=== PATIENT | female | born 1995 | race Caucasian/White ===

== ENCOUNTER 2022-01-17 09:28 | Outpatient (CLI) | payer OTHER, SELFPAY ==
[2022-01-17 14:52] LABS: HCG Quant, Pregnancy 152 mIU/mL (1-3)
== END 2022-01-17 09:29 | disposition home or self-care (01) ==
LOC: LBO 09:29
PROVIDERS: Visit Provider Obstetrics & Gynecology
DX: O03.9 Complete or unspecified spontaneous abortion without complication (principal)
CPT/HCPCS: 36415; 84702

== ENCOUNTER 2022-01-24 03:09 | Outpatient (CLI) | payer OTHER, SELFPAY ==
[2022-01-24 16:44] LABS: HCG Quant, Pregnancy 25 mIU/mL (1-3)
== END 2022-01-24 03:10 | disposition home or self-care (01) ==
LOC: LBO 03:09
PROVIDERS: Visit Provider Obstetrics & Gynecology
DX: O03.9 Complete or unspecified spontaneous abortion without complication (principal)
CPT/HCPCS: 36415; 84702

== ENCOUNTER 2022-03-01 17:43 | Outpatient (REF) | payer OTHER, SELFPAY | END 2022-03-01 17:44 | disposition home or self-care (01) | LOC: LBN 17:43 | PROVIDERS: Visit Provider Obstetrics & Gynecology ==

== ENCOUNTER 2022-03-01 18:24 | Outpatient (REF) | payer OTHER, SELFPAY | END 2022-03-01 18:25 | disposition home or self-care (01) | LOC: LBN 18:24 | PROVIDERS: Visit Provider Obstetrics & Gynecology | DX: N89.8 Other specified noninflammatory disorders of vagina (principal) | CPT/HCPCS: 87480; 87510; 87660 ==

== ENCOUNTER 2022-03-03 02:08 | Outpatient (CLI) | payer OTHER, SELFPAY ==
[2022-03-03 16:31] LABS: HCG Quant, Pregnancy < 1 mIU/mL (1-3)
== END 2022-03-03 02:09 | disposition home or self-care (01) ==
LOC: LBO 02:08
PROVIDERS: Visit Provider Obstetrics & Gynecology
DX: O03.9 Complete or unspecified spontaneous abortion without complication (principal)
CPT/HCPCS: 36415; 84702

== ENCOUNTER 2023-01-10 16:53 | Outpatient (REF) | payer OTHER, SELFPAY ==
--- NOTE | 2023-01-10 16:20 | PAPFT_PTH ---
PATIENT: Paula Lu LOC: [facility] U#:[id number] AGE/SX: 27/F ROOM: RE01/10/[address]: Tricia Cedeño MD : [id number] BED: DIS: 01/10/2023 SPEC #: [id number] RECD: 01/10/23 17:07 STATUS: DOMINIC ZHU #: [id number] CHALO: 01/10/23 16:[address]: Tricia Cedeño DEPT: [facility] Cytology RECD BY: Ignacia Sykes ENTERED: 01/10/23 17:08 SP TYPE: PAPFT OT DR: Charlene Villagomez, EMERY Tissues: 1 - CX/ENDOCX FOR PAP SMEARS Procedures: PAP THIN PREP/UVM Screening Comments: [id number]
== END 2023-01-10 16:54 | disposition home or self-care (01) ==
LOC: LBN 16:53
PROVIDERS: PCP Nurse Practitioner Family; Visit Provider Obstetrics & Gynecology
DX: Z12.4 Encounter for screening for malignant neoplasm of cervix (principal)
CPT/HCPCS: 88142

== ENCOUNTER 2023-01-25 02:53 | Outpatient (CLI) | payer OTHER, SELFPAY ==
[2023-01-25 12:13] LABS: Abs Immature Grans 0.02 10^3/uL (0.0-0.06); Absolute Basophil Count 0.02 10^3/uL (0.0-0.2); Absolute Eosinophil Count 0.04 10^3/uL (0.0-0.7); Absolute Lymphocyte Count 1.95 10^3/uL (1.2-3.4); Absolute Monocyte Count 0.31 10^3/uL (0.1-0.8); Absolute Neutrophil Count 5.49 10^3/uL (1.2-6.7); Basophils % 0.3; Eosinophils % 0.5; HCT 42.6 % (36.0-46.0); HGB 14.3 g/dL (11.2-15.7); Immature Grans % 0.3; Lymphocytes % 24.9; MCHC 33.6 % (32.0-36.0); MCV 89 fL (80-95); MPV 10.8 fL (8.0-11.0); Platelet Count 272 10^3/uL (130-400); RBC 4.77 10^6/uL (3.93-5.22); RDW 12.8 % (11.7-14.6); RDW-SD 41.9 fL; WBC 7.83 10^3/uL (4.4-10.8)
[2023-01-25 12:48] LABS: ALT 20 U/L (14-59); AST 13 U/L (15-37); Albumin 4.5 g/dL (3.4-5.0); Alkaline Phosphatase 69 U/L (46-116); Anion Gap 9.1 mmol/L (3-11); BUN 12 mg/dL (7-18); Bilirubin, Total 0.6 mg/dL (0.2-1.0); CO2 28.9 mmol/L (21.0-32.0); CREATININE 0.8 mg/dL (0.55-1.02); Calcium 9.3 mg/dL (8.5-10.1); Chloride 103 mmol/L (98-107); Estimated GFR 102.22 (mL/min/1.73m2); Ferritin 79 ng/mL (8-252); Glucose 89 mg/dL (74-106); Lipase 62 U/L (16-77); Potassium 3.6 mmol/L (3.5-5.1); Sodium 141 mmol/L (136-145); Total Protein 7.7 g/dL (6.4-8.2)
[2023-01-25 12:57] LABS: Amylase 87 U/L (25-115)
[2023-01-25 13:02] LABS: Total Iron Binding Capacity 346 ug/dL (250-450)
== END 2023-01-25 02:54 | disposition home or self-care (01) ==
PROVIDERS: PCP Nurse Practitioner Family; Visit Provider Nurse Practitioner Family
DX: R10.9 Unspecified abdominal pain (principal)
CPT/HCPCS: 36415; 80053; 83690; 82150; 82728; 83550; 85025

== ENCOUNTER 2023-02-01 01:38 | Outpatient (CLI) | payer OTHER, SELFPAY ==
--- NOTE | 2023-02-01 06:45 | DI.US_ITS ---
Exam(s) US BREAST LT COMPLETE MG MAMMO DIAGNOSTIC BI EXAM: MAMMO DIAGNOSTIC BI CLINICAL HISTORY: breast pain,N64.4. COMPARISON: US US BREAST LT COMPLETE from 02/01/2023 baseline mammogram. TECHNIQUE: Craniocaudal and mediolateral oblique Full Field Digital Mammography views of both breast s with Computer Aided Diagnosis followed by Tomosynthesis and left breast ultrasound. FINDINGS: Mammography/Tomosynthesis: Masses: Smoothly marginated nodule measuring 8 x 17 millimeters in the central breast tissue, slightl y inferiorly and laterally.. Architectural Distortion: None seen. Microcalcifications: No suspicious pleomorphic-type are seen. Skin Thickening/Nipple Retraction: None. Left breast US: Echotexture: Normal appearance of the glandular tissue. Shadowing: No suspicious foci. Cyst: None. Solid lesions: 2 adjacent nodules measuring 1.3 and 1 cm in greatest dimension located in the 4 o'laith ck position 2 cm from the nipple. The lesions were difficult to perceive on ultrasound and blend in with the breast tissue. The findings favor a benign lesion such as a fibroadenoma. Ductal dilation: None. IMPRESSION: 1. No evidence of malignancy is noted. BI-RADS Category 3 - 6 month - Probably Benign Finding: Recommend follow-up mammography ultrasound in 6 months Breast Density - Category D - Extremely dense Breast density category C or D implies that the patient has dense breast tissue. Dense breast tissue is very common and is not abnormal but dense breast tissue can make it harder to find cancer on a ma mmogram. Also, dense breast tissue may increase their breast cancer risk. This information about the result of the mammogram report was provided to the patient to raise their awareness. Use this report when you speak with the patient about their risks for breast cancer, which includes their family hist ory. At that time, you may recommend for more screening tests (Ultrasound or MRI) as they might be us eful based on their risk. A negative radiographic report should not delay biopsy if a dominant or clinically suspicious mass is present. Up to ten percent of cancers are not identified on mammography. A negative report may reinforce clinical impression. Adenosis and dense breasts may obscure an underlying neoplasm. False positive reports average 6 to 10%. Patient will receive a letter notifying them of these results.
== END 2023-02-01 01:58 ==
PROVIDERS: PCP Nurse Practitioner Family; Visit Provider Obstetrics & Gynecology
DX: N64.4 Mastodynia (principal)
CPT/HCPCS: 76642; 77062; 77066; G0279

== ENCOUNTER 2023-02-04 10:43 | Emergency (ER) | payer OTHER, SELFPAY ==
[2023-02-04] VITALS (28 sets, daily range): BP systolic 64–111; BP diastolic 35–75; PULSE 82–118; RESP 16; TEMP 36.7; O2SAT 98–100
[2023-02-04 11:13] LABS: Bilirubin Negative (Negative); Blood Negative (Negative); Clarity Sl Cloudy (Clear); Glucose Negative (Negative); Ketones Negative (Negative); Leukocyte Esterase Small (Negative); Nitrite Negative (Negative); Specific Gravity 1.015 (1.005-1.025); Urobilinogen 0.2 mg/dL (Up to 0.2)
--- NOTE | 2023-02-04 11:15 | DI.CT_ITS ---
Exam(s) CT ABDOMEN PELVIS W EXAM: CT ABDOMEN PELVIS W CLINICAL HISTORY: ruq and rlq pain, nausea vomiting. TECHNIQUE: Imaging Protocol: Axial computed tomography images with coronal and sagittal reformatted images were created and reviewed CONTRAST MATERIAL: Intravenous: Omnipaque 350 Contrast volume:100 ml Oral: / no COMPARISON: No exams were available for comparison FINDINGS: ABDOMEN: Lung Bases: Normal where visualized. Liver: Normal density. No measurable mass. Gallbladder and biliary tract: No radiodense calculus or dilation. Pancreas: Normal density, no abnormal calcifications or inflammatory process. Spleen: Normal. Kidneys: Normal size, contour and axis. No radiodense stones or obstructive uropathy. No suspicious m asses seen. Adrenal glands: No masses seen. Abdominal Aorta: Abdominal portion non-dilated. Soft tissues: Unremarkable. PELVIS: Bladder: No gross wall thickening. No calculi.No focal mass. Bowel: Increased quantity of stool. No obstruction. No bowel wall thickening. Appendix not seen. No secondary findings of appendicitis. Peritoneal cavity: No ascites, collection or mesenteric inflammatory response. Bones: Within normal limits for age. Reproductive organs: Involuting follicle right ovary. Trace fluid in the cul-de-sac. IUD noted. Lymph nodes: Unremarkable. Impression: Involuting follicle the right ovary. No evidence of appendicitis. Gallbladder unremarkable. Large quantity of stool. RADIATION DOSE DELIVERED: 769.33mGy.cm Total DLP DATA REPOSITORY: All CT scans at this facility are submitted to the National Radiology Data Registry (NRDR) Dose Index Registry (DIR) with the [employer] (ACR). RADIATION OPTIMIZATION: All CT scans at this facility use at least one of these dose optimization te chniques: automated exposure control; mA and/or kV adjustment per patient size (includes targeted exa ms where dose is matched to clinical indication); or iterative reconstruction.
[2023-02-04 11:19] LABS: Bacteria Few HPF (Negative); C & S Indicated? No/Sq. Contamination; Casts Negative LPF (Negative); Crystals Negative HPF (Negative); Epithelial Cells Many HPF (Negative); Mucus Trace (Negative); RBC 0-2 HPF (0-2)
--- NOTE | 2023-02-04 11:20 | W.ED.GENAD ---
Discharge Plan Disposition Patient Disposition: Home Condition: Improving Discharge Details Chief Complaint: Nausea/Vomit/Diar Clinical Impression: Ovarian cyst Primary Care Provider: Charlene Villagomez ED Provider: Refugio Yost Home Meds and New Rx's Prescriptions: No Action multivitamin [Daily Multi-Vitamin] Tablet 1 tab PO DAILY cholecalciferol (vitamin D3) 125 mcg (5,000 unit) capsule 125 mcg PO DAILY Liletta 20.4 mcg/24 hrs (8 yrs) 52 mg intrauterine device 1 device intrauterine ONCE Rx Instructions: as a single dose Discharge Instructions Instructions: Ovarian Cyst (ED) Additional Instructions: Please follow-up with women's health next week. Please return to the emergency department for any worsening symptoms. Medical Decision Making 28-year-old female presents with right upper and right lower abdominal discomfort associate with nausea and vomiting this morning. Some bladder pressure earlier this morning. No vaginal discharge or bleeding. Denies surgical history despite history of cholecystectomy in her chart. Chronic abdominal pain over the past several weeks to months. Was scheduled for outpatient evaluation within the coming weeks. Patient is mildly tachycardic, relatively soft blood pressure although appears nontoxic, is nonperitoneal. Consider biliary colic versus cholecystitis muscles consider early appendicitis versus irritable bowel versus inflammatory bowel versus UTI lower suspicion for pyelonephritis or kidney stone. Lower suspicion for pelvic inflammatory disease or ovarian torsion given history and physical. Will obtain CT abdomen pelvis labs fluids patient does not want analgesia or antiemetics at this time. 16: 36 evidence of likely ruptured ovarian cyst on CT scan. Hemodynamically stable. Given anti-inflammatory and antiemetic here in department. Patient has relationship with women's health team here at [facility], will follow-up next week. Given home care instructions and return precautions. HPI General Date/Time Provider Initiated Documentation: 02/04/23 10:54. HPI Narrative: 28-year-old female presents with right upper and right lower quadrant abdominal pain rating down lower abdomen this morning, associate with 1 episode of nausea and vomiting. Did have some bladder pressure this morning. Denies history of abdominal surgeries. Feeling better at the moment. Related Data Home Medications Medication Instructions Recorded Confirmed multivitamin (Daily Multi-Vitamin 1 tab PO DAILY 01/20/22 02/04/23 tablet) cholecalciferol (vitamin D3) 125 125 mcg PO DAILY 02/14/23 03/11/23 mcg (5,000 unit) capsule levonorgestrel 20.4 mcg/24 hrs (8 1 device intrauterine ONCE 01/10/23 02/04/23 yrs) 52 mg intrauterine device (Liletta) Allergies Allergy/AdvReac Type Severity Reaction Status Date / Time No Known Allergies Allergy Verified 02/04/23 10:50 General Stated Complaint: Nausea/Vomit/Diar ANTHONY: 3 Review of Systems Narrative: Review of Systems Constitutional: negative Eyes: negative ENT: negative Cardiovascular: negative Respiratory: negative Gastrointestinal: Abdominal pain, nausea, vomiting : negative Musculoskeletal: negative Skin: negative Neurologic: negative Psych: negative PFSH All Active Problems (Updated 02/04/23 @ 13:37 by Refugio Yost MD) Ovarian cyst (Acute) Cervical lymphadenopathy (Acute) Abdominal pain (Acute) Migraine (Chronic) Migraine vs. muscle tension headache Low iron (Acute) multivitamin with iron Neck pain (Acute) longstanding, has seen chiro in the past Fatigue (Acute) Lipoma (Acute) Breast pain (Acute) Medical History (Updated 02/04/23 @ 13:37 by Refugio Yost MD) COVID-19 end of 2020 Presence of IUD Liletta placed 04/14/22 Retained products of conception Spontaneous miscarriage Surgical History (Updated 03/29/22 @ 19:03 by Janelle Saldaña) History of cholecystectomy History of surgical procedure gallstone removal Family History (Updated 03/25/22 @ 10:23 by Janelle Saldaña) Mother Breast cancer Father Diabetes Social History (Updated 03/25/22 @ 10:23 by Janelle Saldaña) Smoking/Tobacco Use Status: Never Second Hand Exposure: Yes Smoking risk assessment performed?: Yes Alcohol Intake: former Drug use: Never Substance use type: does not use Caregiver/Support person: No Household members: spouse and children Housing: house Number of Children: 2 Communication Needs: None Do you need help understanding health information?: Never current occupation: fashion consultant selling at [employer] Pets and animals: No Sexually active: Yes Do you think of yourself as: straight/heterosexual Current gender identity: female What is your relationship status?: How often do you talk on the phone with friends or family?: three or more times per week How often do you get together with friends or relatives?: twice per week How often do you attend yarsanism or pentecostal services?: decline to answer Do you belong to any clubs or organized social groups?: no Panel score (0-1 are the most socially isolated patients): 2 What type of physical activity do you participate in: walking and aerobic Duration: 45-60 minutes/day Frequency: 3-4 times per week Nirmala/Anglican: No preference Special nirmala needs: No Seatbelt use: always Helmet use: Yes Helmet use: sometimes Drive intox or ride w/intox rickshaw driver: No Do you feel safe at home: No Do you feel safe in your relationship?: No Female Reproductive History Menstrual control method: pills History History 3 Para 2 Hx # Term Pregnancies Multiple births Hx # Pregnancies Ectopic pregnancies AB induced Hx Number of Living Children AB spontaneous 1 Past Pregnancies Del. Date GA/Weeks # Preg Succ Route Wgt Sex Labor Lgth Anesthesia Location [facility] 08/31/18 40 No vaginal 3345.244 g Male [place] 07/17/20 40 No vaginal 3486.991 g Male [place] 01/05/[address] Cedeño Delivery Date: 08/31/18 Last Updated by: Khushboo Berg NP [place] Delivery Date: 07/17/20 [facility]: [facility] Last Updated by: Frances Mcrae LPN sab Exam Narrative Exam Narrative: Physical Examination General: alert, awake, cooperative, resting comfortably, no acute distress HEENT: normocephalic, atraumatic; PERRL, EOM intact, conjunctiva normal; no nasal discharge; moist mucous membranes, oral and pharyngeal mucosa normal, tolerating secretions Neck: supple, trachea midline; full ROM Chest: normal to inspection Respiratory: normal respiratory effort, speaking in full sentences, clear to auscultation, no wheezing, rales or rhonchi Cardiac: regular rate, regular rhythm, S1S2 intact, no murmurs rubs or gallops GI: abdomen soft, non-tender, non-distended; no palpable mass or hepatosplenomegaly Skin: no lesions, rashes or trauma appreciated Neuro: AAOx3, normal speech, moving all extremities Psych: Appropriate mood and affect Course Vital Signs Vital signs: Vital Signs Temperature 36.7 C 02/04/23 10:47 Pulse 118 H 02/04/23 10:47 Respiratory Rate 16 02/04/23 10:47 Blood Pressure 93/63 L 02/04/23 10:47 Temperature 36.7 C 02/04/23 10:47 Temperature Source Oral 02/04/23 10:47 Pulse 118 H 02/04/23 10:47 Respiratory Rate 16 02/04/23 10:47 Respiratory Effort Normal 02/04/23 10:56 Blood Pressure 93/63 L 02/04/23 10:47 Blood Pressure Position Sitting 02/04/23 10:47 Oxygen Delivery Method Room Air 02/04/23 10:47 Oxygen Flow Rate 0 02/04/23 10:47 Lab/Test Results Lab/Test Results: Laboratory Tests Range/Units 02/04/23 11:05 Urine Color (Yellow) Yellow Urine Clarity (Clear) Sl Cloudy Urine pH (5-8) 7.0 Ur Specific [place] (1.005-1.025) 1.015 Urine Protein (Negative) mg/dL Negative Urine Ketones (Negative) mg/dL Negative Urine Blood (Negative) Negative Urine Nitrite (Negative) Negative Urine Bilirubin (Negative) Negative Urine Urobilinogen (Up to 0.2) mg/dL 0.2 Ur Leukocyte Esterase (Negative) Small H Urine RBC (0-2) HPF 0-2 Urine WBC (0-5) HPF 5-10 Ur Epithelial Cells (Negative) HPF Many Urine Crystals (Negative) HPF Negative Urine Bacteria (Negative) HPF Few Urine Casts (Negative) LPF Negative Urine Mucus (Negative) Trace Ur Culture Indicated? No/Sq. Contamination Urine Glucose (Negative) mg/dL Negative POC- Test(urine) Negative
[2023-02-04 11:32] LABS: Abs Immature Grans 0.06 10^3/uL (0.0-0.06); Absolute Basophil Count 0.02 10^3/uL (0.0-0.2); Absolute Eosinophil Count 0.02 10^3/uL (0.0-0.7); Absolute Monocyte Count 0.78 10^3/uL (0.1-0.8); Basophils % 0.1; Eosinophils % 0.1; HCT 40.8 % (36.0-46.0); HGB 14.1 g/dL (11.2-15.7); Immature Grans % 0.4; Lymphocytes % 5.6; MCH 30.5 pg (27.0-33.0); MCHC 34.6 % (32.0-36.0); MCV 88 fL (80-95); MPV 11.1 fL (8.0-11.0); Monocytes % 4.9; Neutrophils % 88.9; Platelet Count 204 10^3/uL (130-400); RBC 4.62 10^6/uL (3.93-5.22); RDW 12.8 % (11.7-14.6); RDW-SD 41.5 fL; WBC 15.96 10^3/uL (4.4-10.8)
[2023-02-04] MEDS: Normal Saline 1,000 ML 1000 ML IV (11:34)
[2023-02-04 11:41] LABS: Absolute Lymphocyte Count 0.89 10^3/uL (1.2-3.4); Absolute Neutrophil Count 14.19 10^3/uL (1.2-6.7)
[2023-02-04 11:53] LABS: ALT 19 U/L (14-59); AST 13 U/L (15-37); Alkaline Phosphatase 58 U/L (46-116); Anion Gap 8.4 mmol/L (3-11); BUN 13 mg/dL (7-18); Bilirubin, Total 0.7 mg/dL (0.2-1.0); CO2 26.6 mmol/L (21.0-32.0); CREATININE 0.7 mg/dL (0.55-1.02); Calcium 8.9 mg/dL (8.5-10.1); Chloride 104 mmol/L (98-107); Estimated GFR 119.24 (mL/min/1.73m2); Glucose 91 mg/dL (74-106); Lipase 52 U/L (16-77); Potassium 3.7 mmol/L (3.5-5.1); Sodium 139 mmol/L (136-145)
[2023-02-04] MEDS: Normal Saline Flush 10 ML SYR IVP (12:04)
[2023-02-04] MEDS: Normal Saline - Diluent 50 ML VIAL IJ (12:04)
[2023-02-04] MEDS: Ondansetron 4 MG/2 ML VIAL IVP (12:33)
--- NOTE | 2023-02-04 12:33 | DI.VRAD_ITS ---
PROCEDURE INFORMATION: Exam: CT Abdomen And Pelvis With Contrast Exam date and time: 02/04/2023 12:03 PM Age: 28 years old Clinical indication: Other: Ruq, rlq, pain nausea vomitting TECHNIQUE: Imaging protocol: Computed tomography of the abdomen and pelvis with contrast. Radiation optimization: All CT scans at this facility use at least one of these dose optimization techniques: automated exposure control; mA and/or kV adjustment per patient size (includes targeted exams where dose is matched to clinical indication); or iterative reconstruction. Contrast material: OMNIPAQUE 350; Contrast volume: 100 ml; Contrast route: INTRAVENOUS (IV); COMPARISON: No relevant prior studies available. FINDINGS: Liver: Normal. No mass. Gallbladder and bile ducts: Normal. No calcified stones. No ductal dilation. Pancreas: Normal. No ductal dilation. Spleen: Normal. No splenomegaly. Adrenal glands: Normal. No mass. Kidneys and ureters: Normal. No hydronephrosis. Stomach and bowel: Unremarkable. No obstruction. No mucosal thickening. Appendix: The appendix is not identified with certainty, but there are no secondary C.T. findings of appendicitis. Intraperitoneal space: There is trace free fluid in the pelvis. No free air. Vasculature: Unremarkable. No abdominal aortic aneurysm. Lymph nodes: Unremarkable. No enlarged lymph nodes. Urinary bladder: Unremarkable as visualized. Reproductive: Involuting cyst in the right ovary measuring 23 mm. There is an IUD in the uterus. Bones/joints: Unremarkable. No acute fracture. Soft tissues: Unremarkable. IMPRESSION: Involuting cyst in the right ovary measuring 23 mm with trace free fluid in the pelvis. The appendix is not identified with certainty, but there are no secondary C.T. findings of appendicitis. Dictated and Authenticated by: Leanne Her MD. Ordering:ABNER Huff MD
[2023-02-04] MEDS: Ketorolac 15 MG/ML VIAL IVP (13:42)
== END 2023-02-04 13:59 | disposition home or self-care (01) ==
PROVIDERS: Emergency Provider Emergency Medicine; PCP Nurse Practitioner Family
DX: N83.291 Other ovarian cyst, right side (principal); R11.2 Nausea with vomiting, unspecified; R00.0 Tachycardia, unspecified
CPT/HCPCS: 36415; 80053; 81025; 83690; 96361; 96374; 96375; 99285; 74177; 81003; 81015; 85025; 99284; J1885; J2405

== ENCOUNTER 2023-05-17 07:16 | Outpatient (CLI) | payer OTHER, SELFPAY ==
[2023-05-17 07:27] LABS: HCT 41.3 % (36.0-46.0); MCH 29.9 pg (27.0-33.0); MCHC 33.9 % (32.0-36.0); MCV 88 fL (80-95); MPV 10.7 fL (8.0-11.0); Platelet Count 252 10^3/uL (130-400); RBC 4.68 10^6/uL (3.93-5.22); RDW 12.6 % (11.7-14.6); RDW-SD 40.5 fL; WBC 8.21 10^3/uL (4.4-10.8)
[2023-05-17 08:19] LABS: Anion Gap 6.8 mmol/L (3-11); BUN 14 mg/dL (7-18); CO2 28.2 mmol/L (21.0-32.0); CREATININE 0.7 mg/dL (0.55-1.02); Calcium 8.9 mg/dL (8.5-10.1); Chloride 106 mmol/L (98-107); Estimated GFR 119.24 (mL/min/1.73m2); Glucose 87 mg/dL (74-106); Potassium 4.4 mmol/L (3.5-5.1); Sodium 141 mmol/L (136-145); TSH (W/Ref FT4) 0.59 uIU/mL (0.36-3.74)
== END 2023-05-17 07:17 | disposition home or self-care (01) ==
LOC: LBO 07:16
PROVIDERS: PCP Nurse Practitioner Family; Visit Provider Nurse Practitioner Family
DX: Z00.00 Encounter for general adult medical examination without abnormal findings (principal); E61.1 Iron deficiency; R53.83 Other fatigue; F32.89 Other specified depressive episodes; F41.8 Other specified anxiety disorders
CPT/HCPCS: 36415; 80048; 85027; 84443

== ENCOUNTER 2023-06-08 19:20 | Outpatient (CLI) | payer OTHER, SELFPAY ==
--- NOTE | 2023-06-08 19:15 | DI.RAD_ITS ---
Exam(s) XR CERVICAL SPINE COMP 4-5V EXAM: XR CERVICAL SPINE COMP 4-5V CLINICAL HISTORY: evaluate pathology. TECHNIQUE: 2D digital imaging was performed. COMPARISON: No exams were available for comparison FINDINGS: Six views: No evidence of fracture, listhesis, nor offset of the spinal laminar line. All of the disc spaces ex hibit normal height. Facet joints unremarkable. No prevertebral soft tissue swelling. Bone density normal. No osseous lesions. No Luschka joint osteophytes evident. No cervical ribs. IMPRESSION: No significant radiograph findings on these images of the cervical spine. DATA REPOSITORY: RADIATION DOSE DELIVERED:
--- NOTE | 2023-06-08 19:15 | DI.RAD_ITS ---
Exam(s) XR LUMBAR SPINE COMPLETE EXAM: XR LUMBAR SPINE COMPLETE CLINICAL HISTORY: evaluate pathology. TECHNIQUE: 2D digital imaging was performed. COMPARISON: No exams were available for comparison FINDINGS: Five views: No evidence of fracture, listhesis, or pars defects. No disc space narrowing. No scoliosis. Bone d ensity normal. No osseous lesions. IUD noted in the pelvis. Twelfth ribs appear rudimentary. IMPRESSION: No significant osseous findings. DATA REPOSITORY: RADIATION DOSE DELIVERED:
--- NOTE | 2023-06-08 19:59 | DI.VRAD_ITS ---
PROCEDURE INFORMATION: Exam: XR Spine Exam date and time: 06/08/2023 19:34 Age: 28 years old Clinical indication: Other: Evaluate pathology TECHNIQUE: Imaging protocol: Radiologic exam of the spine. Views: 1 view. COMPARISON: CT ABDOMEN PELVIS W 02/04/2023 12:03 FINDINGS: Bones/joints: No acute fracture or subluxation. No significant degenerative changes are seen. Soft tissues: Unremarkable. IMPRESSION: No cervical spine fracture. Dictated and Authenticated by: Mable Storm MD. Ordering:TERRI Lechuga MD
--- NOTE | 2023-06-08 19:59 | DI.VRAD_ITS ---
PROCEDURE INFORMATION: Exam: XR Lumbosacral Spine Exam date and time: 06/08/2023 19:40 Age: 28 years old Clinical indication: Other: Evaluate pathology TECHNIQUE: Imaging protocol: Radiologic exam of the lumbosacral spine. Views: 4 or 5 views. COMPARISON: CR XR CERVICAL SPINE COMP 4-5V 06/08/2023 19:34 FINDINGS: Bones/joints: No acute fracture or subluxation. Difficult to exclude a unilateral L5 pars defect however there is no significant listhesis. Minor disc space narrowing L5-S1. Soft tissues: Unremarkable. Organs: IUD projects over the pelvis expected position. IMPRESSION: No acute bony pathology. Dictated and Authenticated by: Mable Storm MD. Ordering:TERRI Lechuga MD
== END 2023-06-08 19:40 ==
LOC: DI 19:20
PROVIDERS: PCP Nurse Practitioner Family; Visit Provider Nurse Practitioner Family
DX: M54.2 Cervicalgia (principal); M54.59 Other low back pain
CPT/HCPCS: 72050; 72110

== ENCOUNTER 2023-07-05 11:49 | Outpatient (REF) | payer OTHER, SELFPAY | END 2023-07-05 11:50 | disposition home or self-care (01) | LOC: LBN 11:49 | PROVIDERS: PCP Nurse Practitioner Family; Visit Provider Obstetrics & Gynecology | DX: N23 Unspecified renal colic (principal); R82.998 Other abnormal findings in urine; R35.0 Frequency of micturition | CPT/HCPCS: 87086 ==

== ENCOUNTER → 2023-07-19 01:25 | Outpatient (CLI) | payer OTHER, SELFPAY ==
--- NOTE | 2023-07-19 08:00 | DI.MRI_ITS ---
Exam(s) MR LUMBAR SPINE WO EXAM: MR LUMBAR SPINE WO CLINICAL HISTORY: Chronic low back pain, L5-S1 disc space narrowing,M54.50. TECHNIQUE: Multiplanar multisequence MRI of the Lumbar spine was performed. COMPARISON: CR,XR XR LUMBAR SPINE COMPLETE from 06/08/2023 FINDINGS: Bones: The last intervertebral disc space is designated the L5/S1 level for the numbering purpose of this examination. The vertebral body heights are well maintained. Alignment is satisfactory. The si gnal characteristics are unremarkable. There is disc desiccation at L4-5 and L5-S1. Cord: The conus tip ends at the L1 level. It is of normal size and signal intensity. T12-L1: No disc herniations or bulges are present. No central spinal canal or neural foraminal stenos is. L1-2: No disc herniations or bulges are present. No central spinal canal or neural foraminal stenosis . L2-3: No disc herniations or bulges are present. No central spinal canal or neural foraminal stenosis . L3-4: No disc herniations or bulges are present. No central spinal canal or neural foraminal stenosis . L4-5: There is a central disc herniation no central spinal canal or neural foraminal stenosis. L5-S1: There is a right paracentral disc herniation. No central spinal canal or neural foraminal ida nosis. Soft tissues: The visualized SI joints and sacrum are well maintained. The paraspinal soft tissues ar e unremarkable. IMPRESSION: 1. Small right paracentral disc herniation at L5-S1 without nerve root impingement, central spinal ca nal stenosis or neural foraminal stenosis. 2. Central disc herniation at L4-5 without evidence of central spinal canal or neural foraminal steno sis. 3. Degenerative disc disease at L4-5 and L5-S1. DATA REPOSITORY:
== END ==
PROVIDERS: PCP Nurse Practitioner Family; Visit Provider Nurse Practitioner Family
DX: M51.36 Other intervertebral disc degeneration, lumbar region (principal)
CPT/HCPCS: 72148

== ENCOUNTER 2023-12-25 12:04 | Day surgery (SDC) | payer OTHER, SELFPAY ==
--- NOTE | 2023-12-24 14:54 | W.PM.DSUDISC ---
Date of service: 12/25/23 Time of Service: 14:32 Discharge Plan Disposition Patient Disposition: Home Condition: Good Discharge Details Reason For Visit: Diagnostic colonoscopy Attending Provider: Jonathan Garrett Primary Care Provider: Charlene Villagomez Home Meds and New Rx's Prescriptions: Continued multivitamin [Daily Multi-Vitamin] Tablet 1 tab PO DAILY Saccharomyces boulardii [Daily Probiotic (S. boulardii)] 250 mg capsule 250 mg PO BID cholecalciferol (vitamin D3) 125 mcg (5,000 unit) capsule 125 mcg PO DAILY Liletta 20.4 mcg/24 hrs (8 yrs) 52 mg intrauterine device 1 device intrauterine ONCE Rx Instructions: as a single dose cyclobenzaprine 5 mg tablet 5 mg PO DAILY PRN (Reason: muscle spasm) Qty: 10 0RF Rx Instructions: Take 1 tablet by mouth as needed for back pain Discharge Instructions Additional Instructions: Paula, we were able to complete your colonoscopy today without any difficulty. Your prep was excellent, and we could see everything fine. There are a few fine changes towards the end of your colon (specifically the descending colon and rectum) that I suppose could represent ulcerative colitis. I did do some biopsies of these areas. Otherwise, everything looks very normal and reassuring. It will take a week or so to get the results of the biopsies, but I will certainly be in touch at that point with the results, and we can make a plan moving forward if there is anything abnormal detected on the pathology report. 1. If tolerated, consume a soft, low fiber diet for 1-2 days. 2[address] Do not drive, drink alcohol, operate machinery, make critical decisions, or do activities that require coordination or balance for 24 hours. 3. Because air was put into your colon during the procedure, expelling air from your rectum (passing gas or farting) is normal. 4. You may not have a bowel movement for 1-3 days because of the colonoscopy prep. This is normal. 5. Go directly to the emergency room if you notice any of the following: Develop chills (warm to touch), or if you have a thermometer and your temperature is above 101 Difficulty breathing or difficultly swallowing Persistent vomiting Severe abdominal pain, other than gas cramps Severe chest pain Black, tarry stools Any bleeding ? exceeding one tablespoon 6. Call your physician if the site where your intravenous was started becomes red, swollen, painful, and warm to touch. 7. Your physician has reviewed your pre-procedure medications. Please continue to take those medications as previously ordered. You will be given specific information/education regarding any changes to your medications before leaving. Activity:: Activity as Tolerated Diet:: As Tolerated Discharge Orders Discharge Orders: Discharge Order (Routine); Ordered 12/24/23 Ordered By: Jonathan Garrett DS: Diagnosis Discharge Diagnosis (1) Abdominal pain: Status: Inactive Asessment and Plan: Follow-up on biopsies
--- NOTE | 2023-12-24 14:55 | COLE_ITS ---
Date of service: 12/25/23 Time of Service: 14:34 Colonoscopy Report Date of procedure: 12/25/23 Pre-op diagnosis general: Abdominal pain Post-op diagnosis procedure note: same (Same) Procedure: diagnostic colonoscopy with biopsies Surgeon: Jonathan Garrett Anesthesia Type: General:No Airway Estimated blood loss (mL): 10 Pathology: other (Rectal biopsies, descending colon biopsies) Complications: None Disposition: same day Indications: Paula is 28 years old and she has been experiencing waxing and waning abdominal pain with alterations in bowel habits. Prep: Miralax/Dulcolax Procedure Start Time: 13:53 Procedure End Time: 14:15 Retraction Time: 15 Findings: Multiple punctate lesions mostly in the rectum and ascending colon that may represent ulcerative colitis Procedure Description: After the induction of monitored anesthetic care, and with the patient in left lateral decubitus position, I began by performing an external anorectal exam.? Perineum and skin were normal, as was the anal verge.? There was no evidence of external hemorrhoids.? Next, I performed a digital rectal exam.? I did not appreciate any abnormal findings.? Next, I advanced a colonoscope into the rectal vault.? I performed retroflexion.? This appeared normal.? Using insufflation, I then advanced the colonoscope into the rectum. Narrowband imaging was used to assist with analysis. Within the rectal vault were multiple punctate lesions. All were well less than 0.25 cm. There was no stigmata of recent bleeding. I did perform multiple rectal biopsies to include some of these areas. This was done with cold forceps and minimal bleeding. I then advanced the colonoscope up through the descending colon and across the trans reverse colon towards the cecum.? The scope was noted to be in the cecum by identification of the ileocecal valve and appendiceal orifice.? I attempted to cannulate the terminal ileum, but I was unsuccessful. Regardless, the ileocecal valve appeared normal, and narrowband imaging demonstrated otherwise normal-appe aring mucosa. I then began withdrawing the colonoscope using repeated irrigation as necessary for full evaluation of the colonic mucosa. Biopsies were performed here as well using cold forceps. ?Once the scope was withdrawn to the level of the rectum, great care was taken to examine portions of the rectal folds.? Finally, the scope was withdrawn and the patient was brought to the same-day surgery recovery unit as the anesthetic wore off. ?The findings and instructions were shared with the patient prior to discharge. [place] Bowel Prep [place] Bowel Prep Right Colon: 3 Left Colon: 3 Transverse Colon: 3 Total Score: 9
--- NOTE | 2023-12-24 16:11 | W.ANESPRE ---
General Info Date of Service Date Performed: 12/25/23 Height: 5 ft 4 in Weight: 63.503 kg Body Mass Index (BMI): 24.0 Surgical Procedure: Operation Date: 12/25/23 12:50 Proposed Procedure Side Surgeon jordyn Garrett MD Meds Allergies and Home Medications Allergies Allergy/AdvReac Type Severity Reaction Status Date / Time No Known Allergies Allergy Verified 12/25/23 12:25 Home Medication Medication Instructions Recorded multivitamin (Daily Multi-Vitamin 1 tab PO DAILY 01/20/22 tablet) cholecalciferol (vitamin D3) 125 125 mcg PO DAILY 01/10/23 mcg (5,000 unit) capsule levonorgestrel 20.4 mcg/24 hrs (8 1 device intrauterine ONCE 01/10/23 yrs) 52 mg intrauterine device (Liletta) Saccharomyces boulardii 250 mg 250 mg PO BID 05/15/23 capsule (Daily Probiotic (S. boulardii)) cyclobenzaprine 5 mg tablet 5 mg PO DAILY PRN muscle spasm #10 06/29/23 tabs Current Visit Medications: Current Medications Generic Name Dose Route Start Last Admin Trade Name Freq PRN Reason Stop Dose Admin Hyoscyamine Sulfate 0.125 mg 12/24/23 14:56 Hyoscyamine 0.125 Mg Sl/Oral/Chew SL 01/23/24 14:55 DIRECTED PRN Ringer's Solution 1,000 mls @ 80 mls/hr 12/25/23 06:00 IV 01/21/24 23:59 INFUSION [facility] IV Miscellaneous Supplies 1 each 12/25/23 06:00 Iv Access IV 01/21/24 23:59 DIRECTED [facility] Ondansetron HCl 4 mg 12/24/23 14:56 Ondansetron 4 Mg/2 Ml Vial IVP 01/23/24 14:55 Q4H PRN PRN Nausea / Vomiting Sodium Chloride 0 ml 12/25/23 06:00 Normal Saline Flush 10 Ml Syr IV 01/21/24 23:59 PRN PRN Sodium Chloride 0 ml 12/25/23 06:00 Normal Saline 10 Ml Vial IJ 01/21/24 23:59 DIRECTED PRN Sterile Water 0 ml 12/25/23 06:00 Water,Injection,Sterile 10 Ml Vial IJ 01/21/24 23:59 DIRECTED PRN PFSH Active Problems Active Problems: Problem Status Onset Code Pelvic floor dysfunction M62.89 Urinary tract pain N23 Anxiety and depression F41.9, F32.A Cervical lymphadenopathy R59.0 Breast pain N64.4 Lipoma D17.9 Fatigue R53.83 Neck pain M54.2 Low iron E61.1 Migraine G43.909 Medical History Medical History COVID-19 end of 2020 Presence of IUD Liletta placed 04/14/22 Surgical History Surgical History History of cholecystectomy History of surgical procedure gallstone removal Tobacco Smoking/Tobacco Use Status: Never Passive smoking exposure: Yes Second hand exposure: Yes Alcohol Alcohol Intake: former Substance Use Substance use: Never Substance use type: does not use Prental History History 3 Para 2 Hx # Term Pregnancies Multiple births Hx # Pregnancies Ectopic pregnancies AB induced Hx Number of Living Children AB spontaneous 1 Past Pregnancies Del. Date GA/Weeks # Preg Succ Route Wgt Sex Labor Lgth Anesthesia Location [facility] 08/31/18 40 No vaginal 3345.244 g Male [place] 07/17/20 40 No vaginal 3486.991 g Male [place] 01/05/[address] Cedeño Delivery Date: 08/31/18 Last Updated by: Khushboo Suarez Delivery Date: 07/17/20 Last Updated by: Khushboo Ruiz Delivery Date: 01/05/22 Last Updated by: Frances Mcrae LPN sab Vital Signs and Lab Results Vital Signs Most Recent Vital Signs in EMR: Temp Pulse Resp BP Pulse Ox 36.4 C L 73 16 112/82 100 12/25/23 12:26 12/25/23 12:26 12/25/23 12:26 12/25/23 12:26 12/25/23 12:26 Lab Results Blood Type / Crossmatch: No Data to Display Complete Blood Count: No Data to Display Complete Metabolic Panel: No Data to Display Liver Function Panel: No Data to Display Coagulation Panel: No Data to Display Cardiac Panel: No Data to Display Arterial Blood Gas: No Data to Display Venous Blood Gas: No Data to Display Pancreas Panel: No Data to Display Thyroid Panel: No Data to Display Infectious Disease: No Data to Display Blood Cultures: No Data to Display Toxicology Panel: No Data to Display Panel: No Data to Display Anesthesia Assessment and Plan Anesthesia History Personal History: No History of Anesthesia Complications Family History: No Family History of Anesthesia Complications Exercise Tolerance Exercise Tolerance: Metabolic Equivalents>4 Pertinent Negatives Pertinent Negatives: No Symptoms of GERD, No Major Cardiovascular Symptoms or Complaints and No Major Pulmonary Symptoms or Complaints Cardiac & Pulmonary Exam Cardiac Exam: Normal S1/S2 Heart Sounds Pulmonary Exam: Clear Bilateral Breath Sounds Implantable Cardiac Device Does patient have a Pacemaker or an ICD?: No Airway Exam Known Difficult Airway: No Mallampati Class: 1 Mouth Opening: Normal (> 3cm) Thyromental Distance: Greater than 3 cm Neck Range of Motion: Full ROM Neck Circumference: Normal Teeth Condition: Normal Dentition ASA Classification ASA Score: ASA 2 Emergency Case?: No NPO Status NPO Status: NPO Clears >2 hours, Solids >8 hours Status Status: Negative HCG Anesthesia Plan Resuscitation Status: Full Code Anesthesia Technique: General Anesthesia Airway Planned: Natural Airway Monitors Used: Standard Monitors Preoperative Comments:: 28 yo female for colo. Sig PMHx: neck pain, migraine, anxiety/depression, never smoker, former EtOH.
[2023-12-25 12:26] VITALS: BP 112/82; PULSE 73; RESP 16; TEMP 36.4; O2SAT 100
[2023-12-25] MEDS: Lactated Ringers 1,000 ML 80 ML IV (12:30)
[2023-12-25 12:47] VITALS: BMI 24.0
--- NOTE | 2023-12-25 13:57 | BOWEL_PTH ---
PATIENT: Paula Lu LOC: [facility] U#:[id number] AGE/SX: 28/F ROOM: RE12/25/[address]: Jonathan Garrett MD : 1995 BED: DIS: 12/25/2023 SPEC #: [id number] RECD: 12/25/23 18:25 STATUS: DOMINIC RE #: [id number] CHALO: 12/25/23 13:[address]: Jonathan Garrett DEPT: Surgical Specimen RECD BY: Ignacia Sykes ENTERED: 12/25/23 18:25 SP TYPE: Bowel OTHR DR: Charlene Villagomez, EMERY Tissues: 1 - BIOPSY BOWEL 2 - BIOPSY BOWEL Procedures: GROSS AND MICRO LEVEL 4 Comments: [id number]
[2023-12-25 14:18] VITALS: BP 109/76; PULSE 90; RESP 16; TEMP 36.4; O2SAT 98
--- NOTE | 2023-12-25 14:44 | W.ANESPOSTOP ---
Postoperative Evaluation Date, Time and Location Date Performed: 12/25/23 Time Performed: 14:44 Patient Location: Day Surgery Unit Vital Signs Most Recent Imported Vital Signs: Most Recent Vital Signs Temp Pulse Resp BP Pulse Ox 36.4 C L 90 16 109/76 98 12/25/23 14:18 12/25/23 14:18 12/25/23 14:18 12/25/23 14:18 12/25/23 14:18 Pain Score Most Recent Pain Score: Most Recent Pain Score Pain Level 0 12/25/23 14:18 Assessment Mental Status: Awake (Alert & Oriented to Patient Baseline) Airway and Respiratory Function: Patent airway with normal (patient baseline) respiratory exam Cardiovascular Function: Hemodynamically Stable Hydration Status: Adequately Hydrated Nausea & Vomiting: No Nausea or Vomiting Pain: Pt. Denies Any Pain Peripheral Nerve Block: Patient did not receive a nerve block
[2023-12-25 14:57] VITALS: BP 108/79; PULSE 60; RESP 16; TEMP 36.6; O2SAT 100
== END 2023-12-25 15:04 | disposition home or self-care (01) ==
LOC: SUR 12:04
PROVIDERS: PCP Nurse Practitioner Family; Visit Provider Surgery
PROC: 0DJD8ZZ Inspection of Lower Intestinal Tract, Via Natural or Artificial Opening Endoscopic (ICD-10-PCS; CPT 45378; principal; 2023-12-25 12:45)
DX: R10.9 Unspecified abdominal pain (principal); R19.4 Change in bowel habit; K62.89 Other specified diseases of anus and rectum; K63.89 Other specified diseases of intestine
CPT/HCPCS: 45380; 81025; 88305; J2704

== ENCOUNTER 2025-06-16 01:49 | Outpatient (CLI) | payer OTHER, SELFPAY ==
[2025-06-16 14:39] LABS: HCT 41.3 % (36.0-46.0); HGB 13.9 g/dL (11.2-15.7); MCH 30.2 pg (27.0-33.0); MCHC 33.7 % (32.0-36.0); MCV 90 fL (80-95); MPV 10.4 fL (8.0-11.0); Platelet Count 286 10^3/uL (130-400); RBC 4.60 10^6/uL (3.93-5.22); RDW 12.6 % (11.7-14.6); RDW-SD 41.9 fL; WBC 7.54 10^3/uL (4.4-10.8)
[2025-06-16 15:24] LABS: Hemoglobin A1C 5.2 % (<5.7)
[2025-06-16 15:30] LABS: ALT 28 U/L (14-59); AST 15 U/L (15-37); Albumin 4.3 g/dL (3.4-5.0); Alkaline Phosphatase 64 U/L (46-116); Anion Gap 7.6 mmol/L (3-11); BUN 10 mg/dL (7-18); Bilirubin, Total 0.6 mg/dL (0.2-1.0); CO2 28.4 mmol/L (21.0-32.0); Calcium 9.1 mg/dL (8.5-10.1); Calculated LDL 79 mg/dL (<100); Chloride 105 mmol/L (98-107); Cholesterol 173 mg/dL (<200); Estimated GFR 117.77 (mL/min/1.73m2); Ferritin 55 ng/mL (8-252); Folate 13.9 ng/mL (8.6-20.0); Glucose 105 mg/dL (74-106); HDL Cholesterol 80 mg/dL (>or=50); Potassium 4.2 mmol/L (3.5-5.1); Sodium 141 mmol/L (136-145); TSH (W/Ref FT4) 0.92 uIU/mL (0.36-3.74); Total Protein 7.4 g/dL (6.4-8.2); Triglyceride 74 mg/dL (<150); Vitamin B12 474 pg/mL (193-986)
[2025-06-16 17:11] LABS: Iron 73 ug/dL (50-170); Total Iron Binding Capacity 317 ug/dL (250-450); Transferrin Sat 23 % (15-50)
== END 2025-06-16 01:50 | disposition home or self-care (01) ==
LOC: LBO 01:49
PROVIDERS: PCP Nurse Practitioner Family; Visit Provider Nurse Practitioner Family
DX: Z00.00 Encounter for general adult medical examination without abnormal findings (principal); F41.9 Anxiety disorder, unspecified; F32.A Depression, unspecified; E61.1 Iron deficiency; G43.009 Migraine without aura, not intractable, without status migrainosus; R53.83 Other fatigue; R59.0 Localized enlarged lymph nodes
CPT/HCPCS: 36415; 80053; 80061; 85027; 82607; 82728; 82746; 83036; 83540; 83550; 84443

== ENCOUNTER 2025-07-02 01:21 | Outpatient (CLI) | payer OTHER, SELFPAY ==
--- NOTE | 2025-07-02 06:30 | DI.US_ITS ---
Exam(s) US SOFT TISSUE HEAD OR NECK EXAM: US SOFT TISSUE HEAD OR NECK CLINICAL HISTORY: f/u left sided neck cysts,cervical lymphadenopathy,r59.0. TECHNIQUE: Ultrasound was performed using standard protocol. COMPARISON: US US SOFT TISSUE HEAD OR NECK from 05/03/2023 FINDINGS: Sonographic assessment utilizing grayscale and color Doppler imaging was performed and targeted to the area of clinical concern. The submandibular region was evaluated sonographically. The submandibular glands appear symmetric and homogeneous. No masses seen within the submandibular glands. There is a 1.5 x 0.7 cm lymph node adjacent to the left submandibular gland. It is homogeneously hypoechoic with an echogenic vascular hilum consistent with a benign-appearing lymph node. This appears to correspond to the palpable abnormality. No suspicious masses are seen sonographically. IMPRESSION: 1. No suspicious masses are seen sonographically. 2. The palpable abnormality appears represent a sonographically benign 1.5 x 0.7 cm lymph node. DATA REPOSITORY:
--- NOTE | 2025-07-02 06:30 | DI.US_ITS ---
Exam(s) US THYROID EXAM: US THYROID CLINICAL HISTORY: f/u lt thyroid nodule, e04.1. TECHNIQUE: Ultrasound thyroid performed using standard protocol. COMPARISON: US US SOFT TISSUE HEAD OR NECK from 05/03/2023 FINDINGS: ISTHMUS: 3 mm RIGHT LOBE: Size: 5.5 x 1.5 x 1.6 cm Echogenicity: Normal. Vascularity: Normal. Nodules: None. LEFT LOBE: Size: 4.0 x 0.9 x 1.1 cm Echogenicity: Normal. Vascularity: Normal. Nodules: There is again seen a nodule in the left lobe of the thyroid gland. It measures 0.6 transverse by 0.5 AP by 0.9 craniocaudad cm. There are few punctate echogenic foci. It is consistent with a TI rads level 4 nodule. Due to its size, no follow-up is recommended. OTHER FINDINGS: There is a 0.7 AP by 0.7 transverse by 1.0 craniocaudad isoechoic nodule at the posterior aspect of the inferior right lobe of the thyroid gland. It is extrathyroidal. This may represent a parathyroid gland. IMPRESSION: Stable left thyroid nodule. No suspicious nodules are seen in the thyroid gland to warrant biopsy or follow-up at this time. DATA REPOSITORY:
--- NOTE | 2025-07-02 08:30 | DI.US_ITS ---
APPROVED REPORT EXAM: Comprehensive 2D, Doppler, and color-flow Echocardiogram Patient Location: Out-Patient Other Information Study Quality: Adequate Conclusion Normal left ventricular wall thickness and chamber size. Ejection fraction is 55 to 60%. Wall motion is normal Normal right ventricular size and function Both atria are normal in size There is no structural or hemodynamically significant valvular disease Wall motion Left Ventricle The left ventricle is normal size. The left ventricular systolic function is normal. The left ventricular ejection fraction is within the normal range. There is normal left ventricular wall thickness. There is normal LV segmental wall motion. There is no ventricular septal defect visualized. LVEF is 55%. Right Ventricle The right ventricle is normal size. The right ventricular systolic function is normal. Atria The left atrium size is normal. The right atrium size is normal. The interatrial septum is intact with no evidence for an atrial septal defect. Aortic Valve The aortic valve is normal in structure. Aortic valve is trileaflet. There is no aortic valvular stenosis. No aortic regurgitation is present. Mitral Valve The mitral valve is normal in structure. No evidence of mitral valve stenosis. Trace mitral regurgitation. Tricuspid Valve The tricuspid valve is normal in structure. There is no tricuspid valve stenosis. Trace tricuspid regurgitation. The RVSP is 14.7_ mmHg. Pulmonic Valve The pulmonary valve is normal in structure. There is no pulmonic valvular stenosis. There is no pulmonic valvular regurgitation. Great Vessels The aortic root is normal in size. Ascending aorta is not well visualized. Aortic arch is normal in caliber. IVC is normal in size and collapses >50% with inspiration. Pericardium There is no pericardial effusion. 2D Dimensions IVSD d PLAX 0.81 cm F: 0.6-1.0 Ao Root d 3.37 cm F: 2.7 - 3.3 LVPW d PLAX 0.81 cm F: 0.6 - 1.0 LVID d PLAX 4.32 cm F: 3.8 - 5.2 LVDs 3.03 cm F: 2.2 - 3.5 LV EF Teichholz 57.3 % FS 29.85 % LV EDV (Teich) 84.1 mL LV ESV (Teich) 35.9 mL M-Mode TAPSE 2.13 cm (M/F) >1.7 Auto EF LV EDV A4C 103.7 mL LV EDV A2C 146.2 mL LV EDV BP 121.6 mL LV ESV A4C 48.2 mL LV ESV A2C 67.9 mL LV ESV BP 56.4 mL LVEF(%) A4C 53.5 % LVEF(%) A2C 53.5 % LVEF(%) BP 53.7 % LV SV A4C 55.5 ml LV SV A2C 78.3 ml LV SV BP 65.3 ml LV CO A4C 3.9 L/min LV CO A2C 4.7 L/min LV CO BP 4.3 L/min HR A4C 69.88 BPM HR A2C 59.41 BPM LV EDV Index (BP) LA Volume LA Length A4C 3.2 cm LA Length A2C 3.1 cm LA Area A4C s 8.85 cm2 LA Area A2C s 7.25 cm2 LA Vol A4C A-L 20.63 mL LA Vol A2C A-L 14.59 mL LA Vol Biplane A-L 17.8 mL LA Vol/BSA A4C A-L LA Vol/BSA A2C A-L LA Vol/BSA BP A-L 10.7 mL/m2 LA Vol A4C MOD 17.7 mL LA Vol A2C MOD 13.6 mL LA Vol BP MOD 15.7 mL RA Volume RA Area A4C 9.5 cm2 RA ESV A4C (A-L) 19.4mL RA Vol/BSA A4C A-L RA Length A4C 3.9 cm RA ESV A4C (MOD) 18.5mL LV Diastology MV E' medial 0.123 (>0.07 m/s) MV E Vmax 0.76 (0.4-1.3 m/s) MV E/E' MED 6.21 (<14) MV A Vmax 0.45 (0.4-1.3 m/s) MV E' lateral 0.123 (>0.1 m/s) E/A Ratio 1.7 MV E/E' LAT 6.21 (<14) MV E' Average 0.123 m/s MV E/E'(average) 6.21 Aortic Valve AoV Vmax 0.87 m/s LVOT Vmax 0.76 m/s AoV Peak Grad 3.0 mmHg LVOT Peak Grad 2.3 mmHg AoV Area (Vmax) 3.03 cm2 LVOT VTI 0.176 m AoV VTI 0.220 m LVOT Mean Grad 1.4 mmHg AoV Mean Elier. 0.67 m/s LVOT SV 60.69 mL AoV Mean Grad 2.0 mmHg LVOT Diam s 2.05 cm AoV Area (VTI) 2.76 cm2 AV Regurg Peak Gr. 3.03 mmHg Velocity Ratio 0.87 Mitral Valve MV DT 152 (160-240 msec) MV Vmax TIPS 0.80 m/s MV Mean Grad 1.0 (<2mmHg) MV VTI 0.251 m Pulmonary Valve PV Vmax 0.78 (0.5-1.5 m/s) RVOT Vmax 0.67 m/s PV Peak Grad 2.4 mmHg RVOT Peak Gr. 1.8 mmHg PV Mean Elier 0.58 m/s RVOT VTI 0.183 m PV Mean Grad 1.5 mmHg RVOT Mean Gr. 1.2 mmHg Tricuspid Valve RA Pressure 3.00 mmHg TR Vmax 1.71 m/s TV S' 0.14 m/s TR Peak Grad 11.7 mmHg RVSP (TR) 14.7 mmHg
== END 2025-07-02 01:41 ==
PROVIDERS: PCP Nurse Practitioner Family; Visit Provider Nurse Practitioner Family
DX: I49.9 Cardiac arrhythmia, unspecified (principal); E04.1 Nontoxic single thyroid nodule; R59.0 Localized enlarged lymph nodes
CPT/HCPCS: 76536; 93306